=== PATIENT | female | born 1995 | race Caucasian/White ===

== ENCOUNTER 2019-08-13 07:48 | Outpatient (CLI) | payer BC, SELFPAY ==
--- NOTE | 2019-08-13 08:23 | NM_ITS ---
WS: [id number] Nuclear medicine hepatobiliary scan with ejection fraction, 08/13/2019 Clinical Data: EPIG PAIN/POST PRANDIAL N/V/NORMAL US Comparison: None. Findings: After the intravenous injection of 7.6 mCi of technetium 99m mebrofenin, multiple anterior gamma camera images of the right upper quadrant were obtained. The parenchymal phase of the liver showed a normal decrease in activity over time. At 10 minutes post injection, there was activity in the gallbladder, intrahepatic ducts and common bi le duct. No evidence of extravasation, obstruction or dilatation of the intrahepatic ducts is seen. Ejection fraction: After the oral administration of 8 ounces of Ensure Plus, the ejection fracture was measured between 1 minute and 65 minutes. It measured 60% which is normal NM/NM hepatobiliary w phar* [id number] Impression: Normal hepatobiliary scan. Impression: Normal ejection fraction of 60%
== END 2019-08-13 07:49 | disposition home or self-care (01) ==
LOC: RAD 08:02
PROVIDERS: Family Provider Internal Medicine; PCP Internal Medicine; Visit Provider Surgery
DX: R10.13 Epigastric pain (principal); R11.2 Nausea with vomiting, unspecified
CPT/HCPCS: 78227; A9537

== ENCOUNTER 2019-08-18 13:17 | Outpatient (CLI) | payer BC, SELFPAY ==
--- NOTE | 2019-08-18 | US_ITS ---
WS: [id number] Pelvic ultrasound, 08/18/2019 Clinical Data: OVARIAN CYST Comparison: None. Findings: The uterus measures 4.46 cm x 4.85 cm x 5.61 cm. The endometrium is 2.5 cm. No intrauterine or abnormal intrauterine mass is seen. The cervical length is 4.5 cm. The left ovary measures 3.2 cm x cm x cm with no cysts or masses. The right ovary measures 3.5 cm x cm x cm with no cysts or masses. US/US pelvic complete* [id number] Impression: Negative pelvic ultrasound.
== END 2019-08-18 13:18 | disposition home or self-care (01) ==
LOC: RADOUTREAD 15:48
PROVIDERS: Family Provider Internal Medicine; PCP Internal Medicine; Referring Provider Internal Medicine; Visit Provider Internal Medicine
DX: N83.209 Unspecified ovarian cyst, unspecified side (principal)

== ENCOUNTER → 2019-10-12 14:51 | Outpatient (BNVA) | payer BC, SELFPAY | PROVIDERS: Family Provider Internal Medicine; PCP Internal Medicine; Visit Provider Family Medicine | DX: F41.9 Anxiety disorder, unspecified (principal); E03.9 Hypothyroidism, unspecified; E07.9 Disorder of thyroid, unspecified | CPT/HCPCS: 84439; 84443 ==

== ENCOUNTER 2020-04-22 19:30 | Emergency (ER) | payer BC, SELFPAY ==
[2020-04-22 20:02] VITALS: BP 117/96; PULSE 80; RESP 14; TEMP 37; O2SAT 98; BMI 25.7
== END 2020-04-23 00:52 ==
PROVIDERS: Emergency Provider Emergency Medicine; PCP Internal Medicine
DX: Z53.21 Procedure and treatment not carried out due to patient leaving prior to being seen by health care provider (principal)
CPT/HCPCS: 99281

== ENCOUNTER → 2020-06-30 12:58 | Outpatient (BNVA) | payer BC, SELFPAY | PROVIDERS: PCP Internal Medicine; Visit Provider Specialist | DX: G43.711 Chronic migraine without aura, intractable, with status migrainosus (principal) | CPT/HCPCS: 99204 ==

== ENCOUNTER → 2020-07-14 13:59 | Outpatient (BNVA) | payer BC, SELFPAY | PROVIDERS: PCP Family Medicine; Visit Provider Specialist | DX: G43.711 Chronic migraine without aura, intractable, with status migrainosus (principal) | CPT/HCPCS: 64615; J0585 ==

== ENCOUNTER 2020-07-25 08:05 | Outpatient (CLI) | payer BC, SELFPAY ==
--- NOTE | 2020-07-25 08:00 | MR_ITS ---
WS: [id number] MRI HEAD WITHOUT CONTRAST TECHNIQUE: Sagittal T1, T2 axial, T2 axial FLAIR, axial and coronal T1 images, axial susceptibility w eighted imaging, axial diffusion weighted images, and coronal T2 images were obtained. CLINICAL INFORMATION: G43.711 - Chronic migraine without aura, intractable, with status migrainosus COMPARISON: MRI 1 017 FINDINGS: No evidence of restricted diffusion to suggest acute ischemia. Ventricular system and basal cisterns are patent. No suspicious intracranial signal abnormalities. Normal palencia-white differentiation. Stabl e cerebellar tonsillar tibia. No hydrocephalus. Normal vascular flow voids at the skull base. No extr a-axial fluid collections. Paranasal sinuses and mastoid air cells well aerated. No hemosiderin on th e susceptibility weighted images. Temporal lobes and hippocampal formations are normal in appearance. Normal optic chiasm and pituitary infundibulum. Normal cavernous sinuses and Meckel's cave. MR/MR head wo con* [id number] IMPRESSION: 1. No evidence of restricted diffusion to suggest acute ischemia. 2. No suspicious intracranial signal abnormalities. Normal palencia-white differen tiation. 3. No hydrocephalus. 4. Incidental cerebellar tonsillar ectopia. No hydrocephalus. Normal fourth ve ntricle. 5. Temporal lobes and hippocampal formations are normal in appearance. Normal optic chiasm and pituitary infundibulum. 6. No significant interval changes.
--- NOTE | 2020-07-25 08:00 | MR_ITS ---
WS: [id number] MRA HEAD TECHNIQUE: Axial 3-D TOF images obtained with axial images and axial, sagittal, and coronal 2-D refor matted images. CLINICAL INFORMATION: G43.711 - Chronic migraine without aura, intractable, with status migrainosus COMPARISON: None. FINDINGS: Distal vertebral arteries are patent. Basilar artery is patent. Normal vascularity to the HIGHER EDUCATION ADMINISTRATOR territo ry bilaterally. Both ICAs are patent the skull base. Normal vascularity to the ARTUR and MCA territories bilaterally. N ormal anterior communicating artery. No evidence of high-grade proximal stenosis or aneurysm. MR/MR angio head wo con [id number] IMPRESSION: Normal intracranial MRA.
== END 2020-07-25 08:06 | disposition home or self-care (01) ==
LOC: RADSHAW 08:07
PROVIDERS: PCP Family Medicine; Visit Provider Specialist
DX: G43.711 Chronic migraine without aura, intractable, with status migrainosus (principal)
CPT/HCPCS: 70544; 70551

== ENCOUNTER 2020-11-02 08:38 | Emergency (ER) | payer BC, SELFPAY ==
[2020-11-02] VITALS (8 sets, daily range): BP systolic 103–135; BP diastolic 58–77; PULSE 82–124; RESP 16–18; TEMP 36.8–37.2; O2SAT 96–100; BMI 26.7
--- NOTE | 2020-11-02 08:45 | ED_ITS ---
HPI - Headache General: Chief Complaint: Headache Stated Complaint: VOMITING BLOOD, MIGRAINE Time Seen by Provider: 11/02/20 08:43 Source: patient Mode of arrival: ambulatory Limitations: no limitations History of Present Illness: HPI Narrative: Patient is a nice 25-year-old female who presents to ED today with a complaint of nausea, vomiting, and migraine headache. Patient tells me yesterday she began feeling extremely nauseous. She tells me she vomited approximately 20 times throughout the day. Patient states after several episodes of vomiting she began noticing small amounts of bright red blood within her vomit. She is complaining of upper abdominal pain. She has no history of gastritis or gastric or duodenal ulcers. Patient states after the nausea and vomiting began she feels like that triggered a migraine headache. Patient has a longstanding history of migraine headaches. She sees Dr. Berrios for this. Patient reports trying Botox for her migraines and states this did help the frequency. Patient states her headache today feels like a migraine. She has not been running fevers. She reports normal bowel movements. Denies urinary symptoms. No bad food exposures. No sick contacts. MD elicited complaint: headache and other (N/V) Onset (ago): hour(s) Onset description: gradually Severity: severe Pain scale (0-10): 10 Exacerbating factors: light Associated symptoms: Reports nausea and vomiting; Deny chest pain, confusion, fever(s), lightheadedness, malaise, rash or syncope Review of Systems Const: Denies: fever(s), chills, body aches, fatigue or malaise Eyes: Denies: change in vision or blurry vision ENMT: Denies: throat pain or odynophagia Card: Denies: chest pain, palpitations, irregular heart rhythm, lightheadedness, syncope or dyspnea on exertion Resp: Denies: dyspnea, productive cough or pain on inspiration GI: Reports: abdominal pain, nausea, vomiting and hematemesis; Denies: coffee ground emesis, heartburn, diarrhea, constipation, change in stool character or melena : Denies: flank pain, difficulty voiding, dysuria, urinary frequency, urinary urgency or urinary hesitancy Musc: Denies: neck pain, back pain or joint pain Skin/Breast: Denies: rash Neuro: Reports: headache(s); Denies: numbness in extremities, weakness in extremities, sensory changes, dizziness, vertigo or confusion PFSH ED PFSH: Medical History (Updated 11/02/20 @ 11:45 by BOLA Barton) Migraine headache with aura Thyroid disorder Surgical History History of D&C (05/23/17) D&C with suction. Dx: Blighted Ovum. [place] [facility] [place]. History of laparoscopic cholecystectomy (08/2019) Performed by Dr. Dwyer at [facility]. History of plastic surgery (~2001) age 7 on lip Family History Other No pertinent family history Social History Smoking and tobacco status: never smoked Alcohol intake: never Other details last substance use: Denies drug use. Physical Exam Const: COMMON NORMALS: no acute distress, average body habitus, patient oriented x3, no limitations, healthy appearing, alert and well nourished GENERAL APPEARANCE: cooperative ORIENTATION/CONSCIOUSNESS: Yes awake, Yes oriented to person, Yes oriented to place and Yes oriented to time HENMT: COMMON NORMALS: normocephalic and atraumatic HEAD & SCALP: normocephalic and atraumatic Eye: COMMON NORMALS: Equal, round and reactive pupils present and EOMs intact bilaterally GENERAL EYE: appearance normal, both eyes and all related structures PUPIL: Yes Equal, round and reactive pupils present Neck/C-Spine: COMMON NORMALS: full ROM, no lymphadenopathy, supple and no meningeal signs Chest: COMMONS NORMALS: normal inspection of the chest Resp: COMMON NORMALS: normal respiratory effort and clear to auscultation bilaterally AUSCULTATION: clear to auscultation bilaterally Cardio: COMMON NORMALS: regular rate and regular rhythm RATE: regular rate RHYTHM: regular rhythm GI: COMMON NORMALS: Normal to inspection, nondistended, normoactive bowel sounds present, Soft to palpation, No hepatosplenomegaly present and no masses PALPATION: Yes Soft to palpation, Yes Tenderness to palpation present (GI) (throughout upper abdomen ) and Yes No hepatosplenomegaly present : COMMON NORMALS: Yes no CVA tenderness BLADDER/KIDNEY EXAM: Yes no CVA tenderness Back/Pelvis: COMMON NORMALS: no CVA tenderness Neuro: MORRIS COMA SCALE: document GCS findings Morris coma scale eye opening: Spontaneous Morris coma scale verbal response: Orientated [place] coma scale motor response: Obey commands Morris coma scale total score: 15 COMMON NORMALS: patient oriented x3 SENSORIUM/ORIENTATION: Yes alert, Yes oriented to person, Yes oriented to place and Yes oriented to time MENINGEAL SIGNS: Yes no meningeal signs Skin: COMMON NORMALS: no rashes or lesions noted GENERAL SKIN EXAM: no rashes or lesions noted Course Vital Signs: Vital signs: Vital Signs Temperature 98.2 F 11/02/20 08:40 Pulse Rate 82 11/02/20 11:00 Respiratory Rate 18 11/02/20 11:00 Blood Pressure 105/58 11/02/20 11:00 Pulse Oximetry 99 11/02/20 11:00 MDM - Headache MDM Narrative: Medical decision making narrative: Patient has not had any episodes of vomiting while here. Vital signs are stable. Her H&H is normal. Patient's headache, abdominal pain, and nausea are much improved after IV medications and fluids. Patient's abdomen is nonsurgical. CT imaging was thought to be unnecessary at this time. Recommend bland diet over the next 24 to 48 hours and advancing as tolerated. She will be sent home with nausea medications. Return to ED precautions given. She can continue to follow-up with Dr. Berrios regarding her migraines. Lab Data: Labs: Lab Results 11/02/20 11/02/20 11/02/20 Range/Units 09:20 09:20 09:20 WBC 9.9 (4.0-10.0) 10^3/ uL RBC 5.37 H (4.1-5.3) 10^6/u L Hgb 15.9 H (11.5-15.3) g/dL Hct 45.7 (37.0-47.0) % MCV 85.1 (81-99) fL MCH 29.6 (28.0-34.0) pg MCHC 34.8 (30.0-36.0) g/dL RDW 11.9 L (12.1-15.1) % Plt Count 184 (130-400) 10^3/c mm MPV 11.1 H (7.4-10.4) fL Neut % (Auto) 92.7 % Lymph % (Auto) 3.6 % [place] % (Auto) 3.4 % Eos % (Auto) 0.0 % Baso % (Auto) 0.1 % Neut # (Auto) 9.18 H (1.8-7.7) 10^3/u L Lymph # (Auto) 0.4 L (0.8-4.8) 10^3/u L [place] # (Auto) 0.3 (0.2-0.9) 10^3/u L Eos # (Auto) 0.0 (0.0-0.8) 10^3/u L Baso # (Auto) 0.0 (0.0-0.1) 10^3/u L Nucleated RBC % (a uto) 0 % Nucleated RBCs # 0.0 /100WBC Sodium 140 (136-145) mmol/L Potassium 3.7 (3.5-5.1) mmol/L Chloride 105 (98-107) mmol/L Carbon Dioxide 25 (22-29) mmol/L Anion Gap 13.7 (5-19) BUN 15 (6-20) mg/dL Creatinine 0.6 (0.5-0.9) mg/dL GFR Calculation 121.8 (90-130) mL/min Glucose 122 H (65-115) mg/dL Calculated Osmolal ity 292 (285-295) mOsm/k g Lactic Acid (0.5-2.2) mmol/L Calcium 8.6 (8.5-10.5) mg/dL Total Bilirubin 0.7 (0.15-1.2) mg/dL AST 22 (0-32) U/L ALT 38 H (0-33) U/L Alkaline Phosphata se 57 (35-105) IU/L Total Protein 7.4 (6.6-8.7) g/dL Albumin 4.3 (3.5-5.2) g/dL Globulin 3.1 (1.3-4.6) g/dL Lipase 18 (13-60) U/L HCG, Qual Negative (Negative) Urine Color (Yellow) Urine Appearance (CLEAR) Urine pH (5-7) Ur Specific Gravit y (1.005-1.030) Urine Protein (Negative) Urine Glucose (UA) (Normal) Urine Ketones (Negative) Urine Blood (Negative) Urine Nitrate (Negative) Urine Bilirubin (Negative) Urine Urobilinogen (Negative) mg/dL Ur Leukocyte Bety ase (Negative) 11/02/20 11/02/20 Range/Units 09:20 09:56 WBC (4.0-10.0) 10^3/ uL RBC (4.1-5.3) 10^6/u L Hgb (11.5-15.3) g/dL Hct (37.0-47.0) % MCV (81-99) fL MCH (28.0-34.0) pg MCHC (30.0-36.0) g/dL RDW (12.1-15.1) % Plt Count (130-400) 10^3/c mm MPV (7.4-10.4) fL Neut % (Auto) % Lymph % (Auto) % [place] % (Auto) % Eos % (Auto) % Baso % (Auto) % Neut # (Auto) (1.8-7.7) 10^3/u L Lymph # (Auto) (0.8-4.8) 10^3/u L [place] # (Auto) (0.2-0.9) 10^3/u L Eos # (Auto) (0.0-0.8) 10^3/u L Baso # (Auto) (0.0-0.1) 10^3/u L Nucleated RBC % (a uto) % Nucleated RBCs # /100WBC Sodium (136-145) mmol/L Potassium (3.5-5.1) mmol/L Chloride (98-107) mmol/L Carbon Dioxide (22-29) mmol/L Anion Gap (5-19) BUN (6-20) mg/dL Creatinine (0.5-0.9) mg/dL GFR Calculation (90-130) mL/min Glucose (65-115) mg/dL Calculated Osmolal ity (285-295) mOsm/k g Lactic Acid 1.1 (0.5-2.2) mmol/L Calcium (8.5-10.5) mg/dL Total Bilirubin (0.15-1.2) mg/dL AST (0-32) U/L ALT (0-33) U/L Alkaline Phosphata se (35-105) IU/L Total Protein (6.6-8.7) g/dL Albumin (3.5-5.2) g/dL Globulin (1.3-4.6) g/dL Lipase (13-60) U/L HCG, Qual (Negative) Urine Color Yellow (Yellow) Urine Appearance Clear (CLEAR) Urine pH 6.5 (5-7) Ur Specific Gravit y 1.015 (1.005-1.030) Urine Protein Neg (Negative) Urine Glucose (UA) Norm (Normal) Urine Ketones 1+ H (Negative) Urine Blood Neg (Negative) Urine Nitrate Negative (Negative) Urine Bilirubin 1+ H (Negative) Urine Urobilinogen 1 H (Negative) mg/dL Ur Leukocyte Bety ase Negative (Negative) Discharge Plan Discharge Patient Disposition: Home Clinical Impression: Gastroenteritis Migraine Qualifiers: Migraine type: without aura Status migrainosus presence: without status migrainosus Intractability: not intractable Qualified Code(s): G43.009 - Migraine without aura, not intractable, without status migrainosus Condition: Stable Prescriptions: New metoclopramide HCl 10 mg tablet 10 mg PO Q6H PRN (Reason: nausea and vomiting) Qty: 14 RF: 0 No Action lorazepam 1 mg tablet 1 mg PO DAILY PRN (Reason: anxiety) 30 Days Qty: 30 RF: 2 Aimovig Autoinjector 140 mg/mL auto-injector 140 mg SUBCUT ONCE Qty: 1 RF: 2 Zoloft 50 mg tablet See Rx Instructions .ROUTE .COMPLEX PRN (Reason: unknown) RF: 0 Discharge Orders: Discharge ED (Routine); Ordered 11/02/20 Ordered By: Lisy Gould Referrals: Hermelinda Walton MD [Primary Care Provider] - Patient Instructions: Migraine Headache (ED), Gastroenteritis (ED) Activity Restrictions/Additional Instructions: Please return to the emergency department for worsening or severe abdominal pain, repetitive episodes of vomiting, continued blood in your vomit, severe headache, or any other concerns you may have. Coding Level of Care Code ED Pastry Chef for Tarung Fwd Exam Comprehensive
[2020-11-02] MEDS: ondansetron 2 mg/ML SDV 2 mL 4 MG IVP (09:26)
[2020-11-02] MEDS: diphenhydrAMINE 50 mg/mL SDV 1mL IVP (09:26)
[2020-11-02] MEDS: sodium chloride 0.9% 500 ML IV (09:27)
[2020-11-02] MEDS: dexamethasone 10 mg/mL INJ 6 MG IV (09:27)
[2020-11-02 09:30] LABS: Basophils % 0.1 %; Hematocrit 45.7 % (37.0-47.0); Hemoglobin 15.9 g/dL (11.5-15.3); Lymphocytes # 0.4 10^3/uL (0.8-4.8); Lymphocytes % 3.6 %; Mean Corpuscular HGB Conc 34.8 g/dL (30.0-36.0); Mean Corpuscular Hemoglobin 29.6 pg (28.0-34.0); Mean Corpuscular Volume 85.1 fL (81-99); Mean Platelet Volume 11.1 fL (7.4-10.4); Monocytes # 0.3 10^3/uL (0.2-0.9); Monocytes % 3.4 %; Neutrophils # 9.18 10^3/uL (1.8-7.7); Neutrophils % 92.7 %; Nucleated Red Blood Cells % 0 %; Platelet Count 184 10^3/cmm (130-400); Red Blood Count 5.37 10^6/uL (4.1-5.3); Red Cell Distribution Width 11.9 % (12.1-15.1); White Blood Count 9.9 10^3/uL (4.0-10.0)
[2020-11-02] MEDS: lidocaine 2% viscous 15 ML, aluminum-mag hydrox-simethicon 30 ML, sucralfate oral liq 1 GM PO (09:31)
[2020-11-02 10:01] LABS: Add Urine Microscopic? NO
[2020-11-02] MEDS: morphine 4 mg/mL SDV 1 mL IVP (10:08)
[2020-11-02 10:16] LABS: Bilirubin Urine 1+ (Negative); Blood Urine Neg (Negative); Glucose Urine UA Norm (Normal); Ketones Urine 1+ (Negative); Leukocyte Esterase Urine Negative (Negative); Nitrate Urine Negative (Negative); Protein Urine Neg (Negative); Specific Gravity, Urine 1.015 (1.005-1.030); Urine Appearance Clear (CLEAR); Urine Color Yellow (Yellow); Urobilinogen Urine 1 mg/dL (Negative); pH Urine 6.5 (5-7)
[2020-11-02 10:16] LABS: HCG, Serum Qual Negative (Negative)
[2020-11-02 10:20] LABS: Lactic Sepsis W/Reflex 1.1 mmol/L (0.5-2.2)
[2020-11-02] MEDS: valproic acid inj 500 MG in sodium chloride 0.9% 50 ML 55 MG IV (10:21)
--- NOTE | 2020-11-02 10:21 | PC.PHAR ---
pt states she is unsure if she got her aimovig injection-pt states she only takes lorazepam and zoloft prn-pt states she not taken for a month or so-pt states she has been off of her javier for 2 1/2 months
[2020-11-02 10:23] LABS: Alanine Aminotransferase 38 U/L (0-33); Albumin Level 4.3 g/dL (3.5-5.2); Alkaline Phosphatase 57 IU/L (35-105); Anion Gap 13.7 (5-19); Aspartate Amino Transferase 22 U/L (0-32); Blood Urea Nitrogen 15 mg/dL (6-20); Calcium 8.6 mg/dL (8.5-10.5); Carbon Dioxide 25 mmol/L (22-29); Chloride 105 mmol/L (98-107); Globulin 3.1 g/dL (1.3-4.6); Glomerular Filtration Rate 121.8 mL/min (90-130); Glucose 122 mg/dL (65-115); Lipase 18 U/L (13-60); Osmolality Calculated 292 mOsm/kg (285-295); Potassium 3.7 mmol/L (3.5-5.1); Sodium 140 mmol/L (136-145); Total Bilirubin 0.7 mg/dL (0.15-1.2); Total Protein 7.4 g/dL (6.6-8.7)
[2020-11-02] MEDS: sodium chloride 0.9% 500 ML 999 ML IV ×2 (10:35→11:26)
[2020-11-02] MEDS: metoclopramide 5 mg/mL SDV 2 mL 10 MG IVP (11:26)
== END 2020-11-02 11:53 | disposition home or self-care (01) ==
PROVIDERS: Emergency Provider Physician Assistant; PCP Family Medicine
DX: K52.9 Noninfective gastroenteritis and colitis, unspecified (principal); G43.009 Migraine without aura, not intractable, without status migrainosus
CPT/HCPCS: 80053; 81003; 83605; 83690; 84703; 85025; 96365; 96375; 99283; J1100; J1200; J2270; J2405; J2765; J7040

== ENCOUNTER 2022-03-04 22:20 | Emergency (ER) | payer BC, SELFPAY ==
[2022-03-04 22:31] VITALS: BP 132/80; PULSE 76; RESP 18; TEMP 36.8; O2SAT 100; BMI 27.4
--- NOTE | 2022-03-04 23:28 | PC.NURSE ---
pt assessment pt states her 'artery has shooting pains and now its going up into her jaw. also states that its not muscle pain because she knows what a spasm feels like.'
[2022-03-04 23:29] VITALS: BP 144/82; PULSE 92; RESP 16; O2SAT 100
--- NOTE | 2022-03-04 23:30 | ED_ITS ---
HPI - Neck Pain/Injury General: Chief Complaint: Neck Pain/Injury Stated Complaint: Neck Pain Time Seen by Provider: 03/04/22 22:29 Source: patient Mode of arrival: ambulatory Limitations: no limitations History of Present Illness: Patient is a 26-year-old female who presents to ED today with a complaint of left sided neck pain. Patient tells me pain began fairly acutely without any injury or trauma yesterday morning around 10 AM. Patient states pain does not feel musculature in nature. She states pain seems to be intermittent with several exacerbations throughout the day. She cannot identify any alleviating or worsening factors to her discomfort. It does not seem to be worsened by movement or palpation. Patient is anxious stating she believes it could be an artery in her neck. She does report some slight paresthesia sensations to her left jawline. Does not complain of any neurologic deficits/facial nerve palsies. Denies pulsatile tinnitus but does feel like her ears feel full. She is not having a headache. She does have an extensive history of migraine headaches. No visual changes, dizziness, lightheadedness. No dysphagia. No recent chiropractic manipulation. MD complaint: neck pain Onset (ago): day(s) (yesterday) Radiation: left lateral Duration: intermittent Relieving factors: none Exacerbating factors: none Associated symptoms: Denies difficulty walking, dizziness or headache(s) Review of Systems Const: Denies: fever(s), chills, body aches, fatigue or malaise Eyes: Denies: change in vision, blurry vision, photophobia, eye discomfort, floaters or seeing flashes ENMT: Reports: change in hearing (reports fullness); Denies: throat pain, odynophagia, swelling of lips/tongue, dental pain, ear or mastoid pain, ear discharge, disequilibrium, nasal discharge or nasal congestion Card: Denies: chest pain, palpitations, irregular heart rhythm, lightheadedness, syncope or dyspnea on exertion Resp: Denies: dyspnea, productive cough, pain on inspiration or chest congestion Musc: Reports: neck pain; Denies: back pain, extremity pain, extremity swelling, joint pain, joint swelling, joint redness, joint warmth, joint stiffness, limited range of motion or muscle weakness Skin/Breast: Denies: rash Neuro: Denies: headache(s), numbness in extremities, weakness in extremities, sensory changes, lack of coordination, difficulty walking, frequent falls, dizziness, vertigo, confusion, behavioral changes, Slurred speech present, difficulty communicating thoughts or seizure-like activity Psych: Reports: anxiety PFSH ED PFSH: Medical History (Updated 03/05/22 @ 00:54 by BOLA Barton) Migraine headache with aura Thyroid disorder Surgical History History of D&C (05/23/17) D&C with suction. Dx: Blighted Ovum. Performed by Dr. Batista at [facility] in [place], [place]. History of laparoscopic cholecystectomy (08/2019) Performed by Dr. Dwyer at [facility]. History of plastic surgery (~2001) age 7 on lip Family History Other No pertinent family history Social History Smoking and tobacco status: never smoked Alcohol intake: never Other details last substance use: Denies drug use. Physical Exam Const: COMMON NORMALS: average body habitus, patient oriented x3, no limitations, healthy appearing, alert and well nourished GENERAL APPEARANCE: cooperative and anxious ORIENTATION/CONSCIOUSNESS: Yes awake, Yes oriented to person, Yes oriented to place and Yes oriented to time HENMT: COMMON NORMALS: normocephalic, atraumatic, hearing grossly normal b ilaterally, external ears normal, EAC's normal and TM's normal bilaterally HEAD & SCALP: normal to inspection, normocephalic and atraumatic FACE & SINUS: normal facial exam EXTERNAL EAR: Yes external ears normal EXTERNAL AUDITORY CANAL: EAC's normal TYMPANIC MEMBRANE: TM's normal bilaterally MOUTH: tongue normal TEETH & GINGIVA: Yes fair dentition THROAT: posterior oropharynx normal, tonsils normal and uvula midline Eye: COMMON NORMALS: Equal, round and reactive pupils present and EOMs intact bilaterally GENERAL EYE: appearance normal, both eyes and all related structures PUPIL: Yes Equal, round and reactive pupils present Neck/C-Spine: COMMON NORMALS: full ROM, no lymphadenopathy, supple, no meningeal signs, no JVD, Thyroid normal and No carotid bruits GENERAL: Yes normal visual inspection THYROID: Thyroid normal CERVICAL SPINE: Yes cervical ROM normal, No pain with cervical ROM, No Cervical spine tenderness and No Paracervical muscle tenderness OTHER: no pulsatile mass Resp: COMMON NORMALS: normal respiratory effort and clear to auscultation bilaterally AUSCULTATION: clear to auscultation bilaterally Cardio: COMMON NORMALS: no JVD, regular rate and regular rhythm RATE: regular rate RHYTHM: regular rhythm Neuro: MORRIS COMA SCALE: document GCS findings Morris coma scale eye opening: Spontaneous Morris coma scale verbal response: Orientated [place] coma scale motor response: Obey commands Morris coma scale total score: 15 COMMON NORMALS: patient oriented x3, CN's II-XII intact bilaterally, moves all extremities, no focal motor deficits, no sensory deficits noted and gait normal SENSORIUM/ORIENTATION: Yes alert, Yes oriented to person, Yes oriented to place and Yes oriented to time MENINGEAL SIGNS: Yes no meningeal signs CRANIAL NERVES: Yes CN normal except as noted Skin: COMMON NORMALS: no rashes or lesions noted GENERAL SKIN EXAM: no rashes or lesions noted Course Vital Signs: Vital signs: Vital Signs Temperature 98.3 F 03/04/22 22:31 Pulse Rate 92 03/04/22 23:29 Respiratory Rate 16 03/04/22 23:29 Blood Pressure 144/82 03/04/22 23:29 Pulse Oximetry 100 03/04/22 23:29 MDM - Neck Pain/Injury Medical Decision Making Labs normal. CTA of her neck is negative. Patient stable for DC with recommen dations for PCP follow up if pain persists. Return to ED precautions given. Lab Data : 03/04/22 23:50 03/04/22 23:50 Radiology Impressions Neck CTA 03/04/22 23:40 IMPRESSION: No stenosis, dissection or occlusion. REFERENCES: NASCET CRITERIA. The degree of internal carotid artery stenosis is based on NASCET criteria. Normal is no stenosis. Mild is less than 50% stenosis. Moderate is 50-69% stenosis. Severe is 70% to 99% stenosis. Total occlusion is no detectable patent lumen. Laboratory Results WBC 6.1 10^3/uL (4.0-10.0) 03/04/22 23:50 RBC 4.88 10^6/uL (4.1-5.3) 03/04/22 23:50 Hgb 14.3 g/dL (11.5-15.3) 03/04/22 23:50 Hct 42.4 % (37.0-47.0) 03/04/22 23:50 MCV 86.9 fl (81-99) 03/04/22 23:50 MCH 29.3 pg (28.0-34.0) 03/04/22 23:50 MCHC 33.7 g/dL (30.0-36.0) 03/04/22 23:50 RDW 12.1 % (12.1-15.1) 03/04/22 23:50 Plt Count 183 10^3/cmm (130-400) 03/04/22 23:50 MPV 11.3 fL (7.4-10.4) H 03/04/22 23:50 Neut % (Auto) 44.0 % 03/04/22 23:50 Lymph % (Auto) 46.7 % 03/04/22 23:50 [place] % (Auto) 7.5 % 03/04/22 23:50 Eos % (Auto) 1.1 % 03/04/22 23:50 Baso % (Auto) 0.5 % 03/04/22 23:50 Neut # (Auto) 2.68 10^3/uL (1.8-7.7) 03/04/22 23:50 Lymph # (Auto) 2.9 10^3/uL (0.8-4.8) 03/04/22 23:50 [place] # (Auto) 0.5 10^3/uL (0.2-0.9) 03/04/22 23:50 Eos # (Auto) 0.1 10^3/uL (0.0-0.8) 03/04/22 23:50 Baso # (Auto) 0.0 10^3/uL (0.0-0.1) 03/04/22 23:50 Nucleated RBC % (auto) 0 % 03/04/22 23:50 Nucleated RBCs # 0.0 /100WBC 03/04/22 23:50 Sodium 141 mmol/L (136-145) 03/04/22 23:50 Potassium 3.7 mmol/L (3.5-5.1) 03/04/22 23:50 Chloride 106 mmol/L (98-107) 03/04/22 23:50 Carbon Dioxide 26 mmol/L (22-29) 03/04/22 23:50 Anion Gap 12.7 (5-19) 03/04/22 23:50 BUN 10 mg/dL (6-20) 03/04/22 23:50 Creatinine 0.7 mg/dL (0.5-0.9) 03/04/22 23:50 GFR Calculation 101.1 mL/min (90-130) 03/04/22 23:50 Glucose 102 mg/dL (65-115) 03/04/22 23:50 Calculated Osmolality 291 mOsm/kg (285-295) 03/04/22 23:50 Calcium 8.8 mg/dL (8.5-10.5) 03/04/22 23:50 HCG, Qual Negative (Negative) 03/04/22 23:50 Discharge Plan Discharge Patient Disposition: Home Clinical Impression: Neck pain on left side Condition: Stable Prescriptions: No Action sertraline [Zoloft] 50 mg tablet 50 mg PO DAILY Qty: 30 1RF lorazepam 1 mg tablet 1 mg PO DAILY PRN (Reason: anxiety) Qty: 20 1RF ketorolac 10 mg tablet 10 mg PO TID PRN (Reason: pain) 5 Days Qty: 15 1RF Discharge Orders: Discharge ED (Routine); Ordered 03/05/22 Ordered By: Lisy Gould Referrals: Hermelinda Walton MD [Primary Care Provider] - Coding Level of Care Code ED Screen Making Supervisor for Chg Fwd Exam Comprehensive
--- NOTE | 2022-03-04 23:40 | CTR_ITS ---
PROCEDURE INFORMATION: Exam: CTA Neck With Contrast Exam date and time: 03/04/2022 11:59 PM Age: 26 years old Clinical indication: Other: Left side neck sharp shooting pains; Patient HX: Sharp shooting pains in left side of neck x 3 days; Additional info: L neck pain TECHNIQUE: Imaging protocol: Computed tomographic angiography of the neck with contrast. 3D rendering (Not supervised by radiologist): MIP and/or 3D reconstructed images were created by the technologist. Radiation optimization: All CT scans at this facility use at least one of these dose optimization techniques: automated exposure control; mA and/or kV adjustment per patient size (includes targeted exams where dose is matched to clinical indication); or iterative reconstruction. Contrast material: OMNIPAQUE 350; Contrast volume: 95 ml; Contrast route: INTRAVENOUS (IV); COMPARISON: [facility] Soft Tissue Neck 02/27/2019 2:42 PM RADIATION DOSE METRICS: Total DLP (mGy-cm): 300.1 FINDINGS: Right common carotid artery: No stenosis. No dissection or occlusion. Right internal carotid artery: No stenosis of the extracranial segment. No dissection or occlusion. Right external carotid artery: No occlusion or stenosis of the origin. Left common carotid artery: No stenosis. No dissection or occlusion. Left internal carotid artery: No stenosis of the extracranial segment. No dissection or occlusion. Left external carotid artery: No occlusion or stenosis of the origin. Right vertebral artery: No stenosis. No dissection or occlusion. Left vertebral artery: No stenosis. No dissection or occlusion. Soft tissues: Normal. No significant soft tissue swelling. Bones/joints: No acute fracture. CT/CT angio neck [id number] IMPRESSION: No stenosis, dissection or occlusion. REFERENCES: NASCET CRITERIA. The degree of internal carotid artery stenosis is based on NASCET criteria. Normal is no stenosis. Mild is less than 50% stenosis. Moderate is 50-69% stenosis. Severe is 70% to 99% stenosis. Total occlusion is no detectable patent lumen.
[2022-03-04 23:55] LABS: Basophils % 0.5 %; Eosinophils # 0.1 10^3/uL (0.0-0.8); Eosinophils % 1.1 %; Hematocrit 42.4 % (37.0-47.0); Hemoglobin 14.3 g/dL (11.5-15.3); Lymphocytes # 2.9 10^3/uL (0.8-4.8); Lymphocytes % 46.7 %; Mean Corpuscular HGB Conc 33.7 g/dL (30.0-36.0); Mean Corpuscular Hemoglobin 29.3 pg (28.0-34.0); Mean Corpuscular Volume 86.9 fl (81-99); Mean Platelet Volume 11.3 fL (7.4-10.4); Monocytes # 0.5 10^3/uL (0.2-0.9); Monocytes % 7.5 %; Neutrophils # 2.68 10^3/uL (1.8-7.7); Nucleated Red Blood Cells % 0 %; Platelet Count 183 10^3/cmm (130-400); Red Blood Count 4.88 10^6/uL (4.1-5.3); Red Cell Distribution Width 12.1 % (12.1-15.1); White Blood Count 6.1 10^3/uL (4.0-10.0)
[2022-03-05 00:10] LABS: HCG, Serum Qual Negative (Negative)
[2022-03-05] MEDS: iohexol 350 mg/mL 100 mL Btl IV (00:11)
[2022-03-05 00:20] LABS: Anion Gap 12.7 (5-19); Blood Urea Nitrogen 10 mg/dL (6-20); Calcium 8.8 mg/dL (8.5-10.5); Carbon Dioxide 26 mmol/L (22-29); Chloride 106 mmol/L (98-107); Glomerular Filtration Rate 101.1 mL/min (90-130); Glucose 102 mg/dL (65-115); Osmolality Calculated 291 mOsm/kg (285-295); Potassium 3.7 mmol/L (3.5-5.1); Sodium 141 mmol/L (136-145)
== END 2022-03-05 01:04 | disposition home or self-care (01) ==
PROVIDERS: Emergency Provider Physician Assistant; PCP Family Medicine
DX: M54.2 Cervicalgia (principal)
CPT/HCPCS: 70498; 80048; 84703; 85025; 99284; Q9967

== ENCOUNTER → 2022-03-15 11:52 | Outpatient (BNVA) | payer BC, SELFPAY | PROVIDERS: PCP Family Medicine; Visit Provider Nurse Practitioner Women's Health | DX: Z01.419 Encounter for gynecological examination (general) (routine) without abnormal findings (principal); N93.9 Abnormal uterine and vaginal bleeding, unspecified | CPT/HCPCS: 84146; 84439; 84443; 84702; 88175 ==

== ENCOUNTER → 2022-03-19 07:49 | Outpatient (BNVA) | payer BC, SELFPAY | PROVIDERS: PCP Family Medicine; Visit Provider Nurse Practitioner Women's Health | DX: N93.9 Abnormal uterine and vaginal bleeding, unspecified (principal); N85.4 Malposition of uterus | CPT/HCPCS: 76830 ==

== ENCOUNTER → 2022-06-19 14:23 | Outpatient (BNVA) | payer BC, SELFPAY | PROVIDERS: PCP Family Medicine; Visit Provider Family Medicine | DX: R00.0 Tachycardia, unspecified (principal); R07.9 Chest pain, unspecified; N93.9 Abnormal uterine and vaginal bleeding, unspecified; F41.9 Anxiety disorder, unspecified; G43.109 Migraine with aura, not intractable, without status migrainosus; E03.9 Hypothyroidism, unspecified; Z51.81 Encounter for therapeutic drug level monitoring | CPT/HCPCS: 84439; 84484; 85025; 85379; 86141 ==

== ENCOUNTER → 2022-10-08 15:12 | Outpatient (BNVA) | payer BC, SELFPAY | PROVIDERS: PCP Family Medicine; Visit Provider Family Medicine | DX: R07.9 Chest pain, unspecified (principal); R00.0 Tachycardia, unspecified | CPT/HCPCS: 80053; 83735; 84439; 84443; 84481; 85025 ==

== ENCOUNTER → 2023-01-18 10:22 | Outpatient (BNVA) | payer OTHER, SELFPAY | PROVIDERS: PCP Family Medicine; Visit Provider Obstetrics & Gynecology | DX: Z34.90 Encounter for supervision of normal pregnancy, unspecified, unspecified trimester (principal) | CPT/HCPCS: 81000; 81025; 84702 ==

== ENCOUNTER 2023-01-20 14:55 | Emergency (ER) | payer OTHER, SELFPAY ==
[2023-01-20 14:58] VITALS: BP 138/79; PULSE 98; RESP 14; TEMP 36.7; O2SAT 99; BMI 28.5
--- NOTE | 2023-01-20 15:20 | PC.PHAR ---
pt states not taken amitriptyline 10mg daily (filled12/07/22 30d/s)or effexor er 37.5mg daily (filled 12/03/22 90d/s) since jan 02 2023
[2023-01-20 15:31] LABS: HCG Qualitative Urine. Positive (Negative)
[2023-01-20 15:34] LABS: Add Urine Microscopic? NO; Charge for UA Resulting for Rev
--- NOTE | 2023-01-20 15:35 | USR_ITS ---
PROCEDURE INFORMATION: Exam: US First Trimester, Transabdominal and US , Transvaginal Exam date and time: 01/20/2023 3:50 PM Age: 27 years old Clinical indication: complicated by abdominal or pelvic pain; Lower; First trimester (<14 weeks 0 days); Gestational age or lmp: 7w4d; ; Additional info: Abd pain, 7 wks preg LABS AND CLINICAL REPORTS: Last menstrual period start date: 11/28/2022 Gestational age (Established): 7 w 4 d Estimated due date (Established): 09/04/2023 TECHNIQUE: Imaging protocol: Real-time transabdominal obstetrical ultrasound of the maternal pelvis and a first trimester , less than 14 weeks 0 days, with image documentation. Transvaginal imaging was used for better evaluation of the fetus, adnexa, and/or cervix. COMPARISON: US OB limited [id number] 03/27/2018 4:19 PM FINDINGS: Gestation: Intrauterine gestation. Yolk sac is unremarkable. Embryonic/ heart rate: 141 bpm Extra-embryonic membranes/Placenta: Unremarkable. No subchorionic bleed. Amniotic fluid: Amniotic fluid and extra-amniotic fluid is normal for gestational age. BIOMETRY: Gestational age (AUA): 6 w 0 d using crown-rump length as the standard. Mean sac diameter: 2.4 cm. EGA (MSD) is 7 w 5 d [place]-Rump length (CRL): 3.5 mm. EGA (CRL) is 6 w 0 d MATERNAL: Uterus: Unremarkable. Cervix: Unremarkable. Right ovary/adnexa: Unremarkable ovary. Left ovary/adnexa: Unremarkable ovary. Intraperitoneal space: No intraperitoneal free fluid. US/US OB <=14 wk fetus w transvag IMPRESSION: Single intrauterine gestation with heart rate noted.
--- NOTE | 2023-01-20 15:35 | ED_ITS ---
Documented by User: Rupa Goodman PA-C 01/20/23 16:36 HPI - Abdominal Pain General: Chief Complaint: Abdominal Pain Stated Complaint: abd pain and lower back Time Seen by Provider: 01/20/23 15:27 Source: patient Mode of arrival: ambulatory Limitations: no limitations History of Present Illness: 27-year-old G3, P2 female presents to the ER today for worsening lower abdominal pain. Patient reports she is approximately 7 weeks . Patient was seen by her OPERATIONS CONTROLLER on Saturday for spotting and abdominal pain. A bedside ultrasound was performed but he was unable to visualize anything in the uterus at that time. hCG was positive at 59,000. Patient was instructed to come to the ER for any worsening pain. Patient reports this morning when she got up she had worsening lower abdominal pain that radiates into her back. Patient reports this pain has been going on 3 weeks but did start to worsen this morning. She denies any fever or chills. Denies any diarrhea or constipation. Patient reports she has had no spotting this morning. Patient is unsure of her blood type. Patient reports this pain is not really as sharp pain but more of a cramping type of pain. It is intermittent and not constant. Patient does have a history of a blighted ovum but otherwise unremarkable pregnancies. Review of Systems General: Reports: 10 or more systems reviewed and unremarkable except in HPI and below PFSH ED PFSH: Medical History Migraine headache with aura No pertinent past medical history neghx: htn,dm,thyroid, dvt/pe PCP: Dr. Pérez Surgical History History of D&C (05/23/17) D&C with suction. Dx: Blighted Ovum. Performed by Dr. Batista at [facility] [place], [place]. History of laparoscopic cholecystectomy (08/2019) Performed by Dr. Dwyer at [facility]. History of plastic surgery (~2001) age 7 on lip Family History Grandmother Hypertension Maternal Denies family history of Colon cancer Ovarian cancer Diabetes Heart disease Hypercholesteremia Breast cancer Uterine cancer Thyroid disease Stroke Social History Substance/Drug Use: never Other details last substance use: Denies drug use. Physical Exam Const: COMMON NORMALS: no acute distress, average body habitus, patient oriented x3, no limitations, healthy appearing, alert and well nourished Resp: COMMON NORMALS: normal respiratory effort EFFORT & INSPECTION: Yes able to speak in complete sentences Cardio: COMMON NORMALS: regular rate, regular rhythm and No murmurs present (Cardio) RATE: regular rate RHYTHM: regular rhythm GI: COMMON NORMALS: Normal to inspection, nondistended, normoactive bowel sounds present, Soft to palpation and non-tender PALPATION: Yes Soft to palpation Back/Pelvis: COMMON NORMALS: no thoracic nor lumbar tenderness and thoraco- lumbar ROM normal Extremity: COMMON NORMALS: normal to inspection and full ROM Neuro: COMMON NORMALS: patient oriented x3 SENSORIUM/ORIENTATION: Yes alert Psych: COMMON NORMALS: mental status grossly normal, Normal thought process present and cooperative THOUGHT PROCESS: Normal thought process present Skin: COMMON NORMALS: no rashes or lesions noted and no wounds GENERAL SKIN EXAM: no rashes or lesions noted Course ED course: Patient presents for lower abdominal pain at approximately 7 weeks . Patient has had some spotting the last several days but today the spotting resolved. She was seen by PCP/OPERATIONS CONTROLLER on Saturday and an hCG was done at that time. It was approximately 59,000. A bedside ultrasound was performed however nothing was visualized in the uterus at that time. Unsure of whether they could visualize fallopian tubes to make sure there was no ectopic. Based on note from BARREL HEADER, he had a low suspicion for ectopic based on 3-week history of abdominal pain. Patient was instructed to come to the ER for worsening pain which she reports began this morning. We will get ultrasound with transvaginal in addition to lab work at this time. Patient unsure of blood type. Consultations: Consultation #1: Spoke with Dr. Conley and gave him results. He agreed with treatment plan and will see pt in the office this week. Time: 16:32 Vital Signs: Vital signs: Vital Signs Temperature 98.1 F 01/20/23 14:58 Pulse Rate 98 01/20/23 14:58 Respiratory Rate 14 01/20/23 14:58 Blood Pressure 138/79 01/20/23 14:58 Pulse Oximetry 99 01/20/23 14:58 Oxygen Delivery Me thod Room Air 01/20/23 14:58 MDM - Abdominal Pain Medical Decision Making Ultrasound obtained given worsening abdominal pain. heart rate of 141 noted. Measuring 6 weeks 0 days crown-rump length and sac approximately 7 weeks 5 days. Based on LMP patient is 7 and 4 today. I spoke with Dr. Conley who recommends follow-up with him this week. Patient is not having any more bleeding and urine is normal. Blood type is B+ so RhoGAM not necessary. We will obtain a beta hCG however a positive heart rate was noted. Also noted on ultrasound were normal ovaries with no free fluid. Discussed findings with patient. Recommended pelvic rest and avoiding heavy lifting. Push fluids. Follow-up with Dr. Conley this week. Return to the ER with new or worsening symptoms. Patient verbalized understanding and was in agreement with treatment plan. Lab Data Labs/Radiology: Radiology Impressions Obstetrics Ultrasound 01/20/23 15:35 IMPRESSION: Single intrauterine gestation with heart rate noted. Laboratory Results HCG, Qual Positive (Negative) H 01/20/23 15:20 Ser , Semi-Qnt 07459.00 mIU/mL 01/20/23 15:30 Urine Color Straw (Yellow) 01/20/23 15:20 Urine Appearance Clear (CLEAR) 01/20/23 15:20 Urine pH 5 (5-7) 01/20/23 15:20 Ur Specific [place] 1.020 (1.005-1.030) 01/20/23 15:20 Urine Protein Neg (Negative) 01/20/23 15:20 Urine Glucose (UA) Norm (Normal) 01/20/23 15:20 Urine Ketones Negative (Negative) 01/20/23 15:20 Urine Blood Neg (Negative) 01/20/23 15:20 Urine Nitrate Negative (Negative) 01/20/23 15:20 Urine Bilirubin Neg (Negative) 01/20/23 15:20 Urine Urobilinogen Norm mg/dL (Negative) 01/20/23 15:20 Ur Leukocyte Esterase Negative (Negative) 01/20/23 15:20 Blood Type B Positive 01/20/23 15:30 Rho(D) Type Positive 01/20/23 15:30 Critical Care Time Critical Care Time: Critical Care Time: No Discharge Plan Discharge Patient Disposition: Home Clinical Impression: related condition in first trimester Condition: Stable Prescriptions: No Action prenat.vits,era,uad-rmhl-immxd Tablet 1 tab PO QAM ondansetron HCl 4 mg tablet 4 mg PO Q8H PRN (Reason: nausea and vomiting) Qty: 30 2RF Discharge Orders: Discharge ED (Routine); Ordered 01/20/23 Ordered By: Rupa Goodman Referrals: Marie Smith MD [Primary Care Provider] - Discharge Diet: Usual diet Discharge Activity: Increase activity as tolerated Patient Instructions: Opioid Safety, Pain Management Activity Restrictions/Additional Instructions: Push fluids. Recommend pelvic rest and avoid heavy lifting. Continue home medications. Follow-up with Dr. Conley this week. Turn to the ER with new or worsening symptoms. Coding Level of Care Code ED Irrigator Gravity Flow for Chg Fwd Documented by User: Oswaldo Hameed DO 01/21/23 05:42 HPI - Abdominal Pain General: Chief Complaint: Abdominal Pain Stated Complaint: abd pain and lower back Time Seen by Provider: 01/20/23 15:27 PFSH ED PFSH: Medical History Migraine headache with aura No pertinent past medical history neghx: htn,dm,thyroid, dvt/pe PCP: Dr. Pérez Surgical History History of D&C (05/23/17) D&C with suction. Dx: Blighted Ovum. Performed by Dr. Batista at [facility] [place], [place]. History of laparoscopic cholecystectomy (08/2019) Performed by Dr. Dwyer at [facility]. History of plastic surgery (~2001) age 7 on lip Family History Grandmother Hypertension Maternal Denies family history of Colon cancer Ovarian cancer Diabetes Heart disease Hypercholesteremia Breast cancer Uterine cancer Thyroid disease Stroke Social History Substance/Drug Use: never Other details last substance use: Denies drug use. Course Vital Signs: Vital signs: Vital Signs Temperature 98.1 F 01/20/23 14:58 Pulse Rate 98 01/20/23 14:58 Respiratory Rate 14 01/20/23 14:58 Blood Pressure 138/79 01/20/23 14:58 Pulse Oximetry 99 01/20/23 14:58 Oxygen Delivery Me thod Room Air 01/20/23 14:58 MDM - Abdominal Pain Medical Decision Making Ultrasound obtained given worsening abdominal pain. heart rate of 141 noted. Measuring 6 weeks 0 days crown-rump length and sac approximately 7 weeks 5 days. Based on LMP patient is 7 and 4 today. I spoke with Dr. Conley who recommends follow-up with him this week. Patient is not having any more bleeding and urine is normal. Blood type is B+ so RhoGAM not necessary. We will obtain a beta hCG however a positive heart rate was noted. Also noted on ultrasound were normal ovaries with no free fluid. Discussed findings with patient. Recommended pelvic rest and avoiding heavy lifting. Push fluids. Follow-up with Dr. Conley this week. Return to the ER with new or worsening symptoms. Patient verbalized understanding and was in agreement with treatment plan. Chart reviewed. Agree with assessment and plan. Lab Data Labs/Radiology: Radiology Impressions Obstetrics Ultrasound 01/20/23 15:35 IMPRESSION: Single intrauterine gestation with heart rate noted. Laboratory Results HCG, Qual Positive (Negative) H 01/20/23 15:20 Ser , Semi-Qnt 24461.00 mIU/mL 01/20/23 15:30 Urine Color Straw (Yellow) 01/20/23 15:20 Urine Appearance Clear (CLEAR) 01/20/23 15:20 Urine pH 5 (5-7) 01/20/23 15:20 Ur Specific [place] 1.020 (1.005-1.030) 01/20/23 15:20 Urine Protein Neg (Negative) 01/20/23 15:20 Urine Glucose (UA) Norm (Normal) 01/20/23 15:20 Urine Ketones Negative (Negative) 01/20/23 15:20 Urine Blood Neg (Negative) 01/20/23 15:20 Urine Nitrate Negative (Negative) 01/20/23 15:20 Urine Bilirubin Neg (Negative) 01/20/23 15:20 Urine Urobilinogen Norm mg/dL (Negative) 01/20/23 15:20 Ur Leukocyte Esterase Negative (Negative) 01/20/23 15:20 Blood Type B Positive 01/20/23 15:30 Rho(D) Type Positive 01/20/23 15:30 Discharge Plan Discharge Patient Disposition: Home Clinical Impression: related condition in first trimester Condition: Stable Prescriptions: No Action prenat.vits,era,kwl-alrz-qnjuu Tablet 1 tab PO QAM ondansetron HCl 4 mg tablet 4 mg PO Q8H PRN (Reason: nausea and vomiting) Qty: 30 2RF Discharge Orders: Discharge ED (Routine); Ordered 01/20/23 Ordered By: Rupa Goodman Referrals: Marie Smith MD [Primary Care Provider] - Discharge Diet: Usual diet Discharge Activity: Increase activity as tolerated Patient Instructions: Opioid Safety, Pain Management Activity Restrictions/Additional Instructions: Push fluids. Recommend pelvic rest and avoid heavy lifting. Continue home medications. Follow-up with Dr. Conley this week. Turn to the ER with new or worsening symptoms. Coding Level of Care Code ED Irrigator Gravity Flow for Lion Ramsey
[2023-01-20 15:44] LABS: Bilirubin Urine Neg (Negative); Blood Urine Neg (Negative); Glucose Urine UA Norm (Normal); Ketones Urine Negative (Negative); Leukocyte Esterase Urine Negative (Negative); Nitrate Urine Negative (Negative); Protein Urine Neg (Negative); Urine Appearance Clear (CLEAR); Urine Color Straw (Yellow); Urobilinogen Urine Norm (Negative); pH Urine 5 (5-7)
== END 2023-01-20 16:42 | disposition home or self-care (01) ==
PROVIDERS: Emergency Medicine; Emergency Provider Physician Assistant; PCP Family Medicine
DX: O26.891 Other specified pregnancy related conditions, first trimester (principal); R10.30 Lower abdominal pain, unspecified; Z3A.01 Less than 8 weeks gestation of pregnancy
CPT/HCPCS: 36415; 76801; 76817; 81003; 81025; 84702; 86900; 99284

== ENCOUNTER → 2023-01-22 13:35 | Outpatient (BNVA) | payer OTHER, SELFPAY | PROVIDERS: PCP Family Medicine; Visit Provider Obstetrics & Gynecology | DX: Z34.80 Encounter for supervision of other normal pregnancy, unspecified trimester (principal) | CPT/HCPCS: 81000 ==

== ENCOUNTER 2023-03-10 12:36 | Emergency (ER) | payer OTHER, SELFPAY ==
[2023-03-10 12:46] VITALS: BP 106/61; PULSE 120; RESP 16; TEMP 37; O2SAT 96; BMI 29.7
--- NOTE | 2023-03-10 14:50 | ED_ITS ---
Documented by User: Rupa Goodman PA-C 03/10/23 16:50 HPI - Headache General: Chief Complaint: Headache Stated Complaint: covid symptoms Time Seen by Provider: 03/10/23 14:44 Source: patient Mode of arrival: ambulatory Limitations: no limitations History of Present Illness: 27-year-old female who is 14 weeks presents to the ER today for a migraine headache that began yesterday, nausea and vomiting, and mild cough. Patient reports the cough began prior to the rest of the symptoms. Denies any fevers associated. Patient reports when she began throwing up the cough improved. She reports she is thrown up more than normal in the last 24 hours. She is always got some nausea with but this has been significantly worse. Patient denies any diarrhea. Denies any abdominal pain. Patient does have a history of migraines and reports this is up near the top of her worst. She reports she has had some in the whole time. Patient has not taken anything at home for her symptoms. She was exposed to someone on a youth trip with COVID. Patient talked to her PCP who recommended she come here for testing. Review of Systems General: Reports: 10 or more systems reviewed and unremarkable except in HPI and below PFSH ED PFSH: Medical History Migraine headache with aura No pertinent past medical history neghx: htn,dm,thyroid, dvt/pe PCP: Dr. Pérez Surgical History History of D&C (05/23/17) D&C with suction. Dx: Blighted Ovum. Performed by Dr. Batista at [facility] in [place], [place]. History of laparoscopic cholecystectomy (08/2019) Performed by Dr. Dwyer at [facility]. History of plastic surgery (~2001) age 7 on lip Family History Grandmother Hypertension Maternal Denies family history of Colon cancer Ovarian cancer Diabetes Heart disease Hypercholesteremia Breast cancer Uterine cancer Thyroid disease Stroke Social History Substance/Drug Use: never Other details last substance use: Denies drug use. Physical Exam Const: COMMON NORMALS: average body habitus, patient oriented x3, no limitati ons, healthy appearing, alert and well nourished; apparent distress (uncomfortable, lights are bothering pt) HENMT: COMMON NORMALS: normocephalic, atraumatic, external ears normal, Normal external nose present and moist oral mucous membranes HEAD & SCALP: normocephalic and atraumatic NOSE: Normal external nose present EXTERNAL EAR: Yes external ears normal Eye: COMMON NORMALS: Equal, round and reactive pupils present PUPIL: Yes Equal, round and reactive pupils present Neck/C-Spine: COMMON NORMALS: full ROM Resp: COMMON NORMALS: normal respiratory effort EFFORT & INSPECTION: Yes able to speak in complete sentences Cardio: COMMON NORMALS: regular rhythm RATE: tachycardic RHYTHM: regular rhythm GI: COMMON NORMALS: Normal to inspection, nondistended, normoactive bowel sounds present OTHER: gravid Extremity: COMMON NORMALS: normal to inspection, full ROM and no pedal edema Neuro: COMMON NORMALS: patient oriented x3 SENSORIUM/ORIENTATION: Yes alert Psych: COMMON NORMALS: mental status grossly normal, Normal thought process present and cooperative THOUGHT PROCESS: Normal thought process present Skin: COMMON NORMALS: no rashes or lesions noted GENERAL SKIN EXAM: no rashes or lesions noted Course ED course: Patient presents to the ER with headache, nausea and vomiting for the last 24 hours. Patient was exposed to someone in the last several days that tested positive for COVID. Patient talked her PCP who recommended she come here. Nani belle does have a history of migraines however this is near the top as far as being one of the worst she has had. She has had nausea with as she is currently 14 weeks however this is also worse than normal and she is vomiting more than normal. We will go ahead and do some IV fluids, Benadryl, and Reglan at this time. We will try to make patient more comfortable and see if we can help with her headache. Patient to be COVID tested also. Reevaluation(s): Reevaluation #1: Reports headache still present but nausea is better. Patient requesting to go home. I explained that I am waiting on a urine because if she has UTI we need to get that treated. Patient does seem a little bit irritated at this time. Time: 16:45 Vital Signs: Vital signs: Vital Signs Temperature 98.6 F 03/10/23 12:46 Pulse Rate 98 03/10/23 16:01 Respiratory Rate 18 03/10/23 16:01 Blood Pressure 106/61 03/10/23 12:46 Pulse Oximetry 99 03/10/23 16:01 Oxygen Delivery Me thod Room Air 03/10/23 16:01 MDM - Headache Medical Decision Making COVID-negative. Patient reports migraine still present but nausea has improved some. Urine negative for any infection. We will refill the Reglan which patient can use for nausea at home. Recommend a bland diet. Continue taking rbbl-wlr-zzfmkot medications such as Tylenol and Benadryl for headache. If no improvement in 1 to 2 days follow-up with PCP or SOFTWARE INSTALLER. Return to the ER with any new or worsening symptoms. Patient verbalized understanding and was in agreement with the treatment plan. Lab Data Laboratory Results Urine Color Yellow (Yellow) 03/10/23 15:59 Urine Appearance Hazy (CLEAR) A 03/10/23 15:59 Urine pH 7 (5-7) 03/10/23 15:59 Ur Specific [place] 1.010 (1.005-1.030) 03/10/23 15:59 Urine Protein Neg (Negative) 03/10/23 15:59 Urine Glucose (UA) Norm (Normal) 03/10/23 15:59 Urine Ketones 1+ (Negative) H 03/10/23 15:59 Urine Blood Neg (Negative) 03/10/23 15:59 Urine Nitrate Negative (Negative) 03/10/23 15:59 Urine Bilirubin Neg (Negative) 03/10/23 15:59 Urine Urobilinogen Norm mg/dL (Negative) 03/10/23 15:59 Ur Leukocyte Esterase Negative (Negative) 03/10/23 15:59 Urine RBC None /hpf (0-2) 03/10/23 15:59 Urine WBC 0-4 /hpf (0-5) H 03/10/23 15:59 Ur Squamous Epith Cells 5-10 /hpf (0-5) H 03/10/23 15:59 Amorphous Sediment 2+ /hpf 03/10/23 15:59 Urine Bacteria 1+ /hpf (NONE) H 03/10/23 15:59 SARS-CoV-2 Ag (Rapid) negative (Negative) 03/10/23 14:30 Critical Care Time Critical Care Time: Critical Care Time: No Discharge Plan Discharge Patient Disposition: Home Clinical Impression: Vomiting affecting Migraine Qualifiers: Migraine type: unspecified Status migrainosus presence: without status migrainosus Intractability: intractable Qualified Code(s): G43.919 - Migraine, unspecified, intractable, without status migrainosus Condition: Stable Prescriptions: New Reglan 10 mg tablet 10 mg PO Q6H 7 Days Qty: 28 0RF No Action prenat.vits,era,rno-tiiu-llhny Tablet 1 tab PO QAM metoclopramide HCl [Reglan] 10 mg tablet 10 mg PO Q8H PRN (Reason: nausea and vomiting) Qty: 40 1RF Discharge Orders: Discharge ED (Routine); Ordered 03/10/23 Ordered By: Rupa Goodman Referrals: Marie Smith MD [Primary Care Provider] - Discharge Diet: Usual diet Discharge Activity: Resume usual activity Patient Instructions: Opioid Safety, Pain Management Activity Restrictions/Additional Instructions: Take reglan as needed for nausea. Recommend Tylenol for headache in addition to Benadryl. BRAT diet recommended. F/U with PCP or OBGYN in 1-2 days if symptoms not improving. Return to the ER with any new or worsening symptoms. Coding Level of Care Code ED Configuration Engineer for Chg Fwd Documented by User: Oswaldo Hameed DO 03/11/23 06:44 HPI - Headache General: Chief Complaint: Headache Stated Complaint: covid symptoms Time Seen by Provider: 03/10/23 14:44 PFSH ED PFSH: Medical History Migraine headache with aura No pertinent past medical history neghx: htn,dm,thyroid, dvt/pe PCP: Dr. Pérez Surgical History History of D&C (05/23/17) D&C with suction. Dx: Blighted Ovum. Performed by Dr. Batista at [facility] in [place], [place]. History of laparoscopic cholecystectomy (08/2019) Performed by Dr. Dwyer at [facility]. History of plastic surgery (~2001) age 7 on lip Family History Grandmother Hypertension Maternal Denies family history of Colon cancer Ovarian cancer Diabetes Heart disease Hypercholesteremia Breast cancer Uterine cancer Thyroid disease Stroke Social History Substance/Drug Use: never Other details last substance use: Denies drug use. Course Vital Signs: Vital signs: Vital Signs Temperature 98.6 F 03/10/23 12:46 Pulse Rate 98 03/10/23 16:01 Respiratory Rate 18 03/10/23 16:01 Blood Pressure 106/61 03/10/23 12:46 Pulse Oximetry 99 03/10/23 16:01 Oxygen Delivery Me thod Room Air 03/10/23 16:01 MDM - Headache Medical Decision Making COVID-negative. Patient reports migraine still present but nausea has improved some. Urine negative for any infection. We will refill the Reglan which patient can use for nausea at home. Recommend a bland diet. Continue taking tgyz-xpc-kkekxhg medications such as Tylenol and Benadryl for headache. If no improvement in 1 to 2 days follow-up with PCP or SOFTWARE INSTALLER. Return to the ER with any new or worsening symptoms. Patient verbalized understanding and was in agreement with the treatment plan. Chart reviewed and patient discussed with midlevel. Agree with assessment and plan. Lab Data Laboratory Results Urine Color Yellow (Yellow) 03/10/23 15:59 Urine Appearance Hazy (CLEAR) A 03/10/23 15:59 Urine pH 7 (5-7) 03/10/23 15:59 Ur Specific [place] 1.010 (1.005-1.030) 03/10/23 15:59 Urine Protein Neg (Negative) 03/10/23 15:59 Urine Glucose (UA) Norm (Normal) 03/10/23 15:59 Urine Ketones 1+ (Negative) H 03/10/23 15:59 Urine Blood Neg (Negative) 03/10/23 15:59 Urine Nitrate Negative (Negative) 03/10/23 15:59 Urine Bilirubin Neg (Negative) 03/10/23 15:59 Urine Urobilinogen Norm mg/dL (Negative) 03/10/23 15:59 Ur Leukocyte Esterase Negative (Negative) 03/10/23 15:59 Urine RBC None /hpf (0-2) 03/10/23 15:59 Urine WBC 0-4 /hpf (0-5) H 03/10/23 15:59 Ur Squamous Epith Cells 5-10 /hpf (0-5) H 03/10/23 15:59 Amorphous Sediment 2+ /hpf 03/10/23 15:59 Urine Bacteria 1+ /hpf (NONE) H 03/10/23 15:59 SARS-CoV-2 Ag (Rapid) negative (Negative) 03/10/23 14:30 Discharge Plan Discharge Patient Disposition: Home Clinical Impression: Vomiting affecting Migraine Qualifiers: Migraine type: unspecified Status migrainosus presence: without status migrainosus Intractability: intractable Qualified Code(s): G43.919 - Migraine, unspecified, intractable, without status migrainosus Condition: Stable Prescriptions: New Reglan 10 mg tablet 10 mg PO Q6H 7 Days Qty: 28 0RF No Action prenat.vits,era,ywr-ygvn-ofdhp Tablet 1 tab PO QAM metoclopramide HCl [Reglan] 10 mg tablet 10 mg PO Q8H PRN (Reason: nausea and vomiting) Qty: 40 1RF Discharge Orders: Discharge ED (Routine); Ordered 03/10/23 Ordered By: Rupa Goodman Referrals: Marie Smith MD [Primary Care Provider] - Discharge Diet: Usual diet Discharge Activity: Resume usual activity Patient Instructions: Opioid Safety, Pain Management Activity Restrictions/Additional Instructions: Take reglan as needed for nausea. Recommend Tylenol for headache in addition to Benadryl. BRAT diet recommended. F/U with PCP or OBGYN in 1-2 days if symptoms not improving. Return to the ER with any new or worsening symptoms. Coding Level of Care Code ED Configuration Engineer for Lion Ramsey
[2023-03-10 14:53] LABS: SARS Covid-2 Antigen negative (Negative)
[2023-03-10] MEDS: sodium chloride 0.9% 500 ML 999 ML IV (15:27)
[2023-03-10] MEDS: diphenhydrAMINE 50 mg/mL SDV 1mL 12.5 MG IVP (15:29)
[2023-03-10] MEDS: metoclopramide 5 mg/mL SDV 2 mL IVP (15:29)
[2023-03-10 16:01] VITALS: PULSE 98; RESP 18; O2SAT 99
[2023-03-10 16:46] LABS: Add Urine Microscopic? YES; Bacteria Urine 1+ /hpf; Bilirubin Urine Neg (Negative); Blood Urine Neg (Negative); Glucose Urine UA Norm (Normal); Ketones Urine 1+ (Negative); Leukocyte Esterase Urine Negative (Negative); Nitrate Urine Negative (Negative); Protein Urine Neg (Negative); Urine Appearance Hazy (CLEAR); Urine Color Yellow (Yellow); Urobilinogen Urine Norm (Negative); WBC Urine 0-4 /hpf (0-5); pH Urine 7 (5-7)
[2023-03-10 16:47] LABS: Add Urine Culture? No; Amorphous Sediment Urine 2+ /hpf
== END 2023-03-10 17:00 | disposition home or self-care (01) ==
PROVIDERS: Emergency Provider Physician Assistant; PCP Family Medicine
DX: O26.892 Other specified pregnancy related conditions, second trimester (principal); G43.919 Migraine, unspecified, intractable, without status migrainosus; O21.9 Vomiting of pregnancy, unspecified; Z3A.14 14 weeks gestation of pregnancy; Z20.822 Contact with and (suspected) exposure to COVID-19
CPT/HCPCS: 81001; 87426; 96361; 96374; 96375; 99284; J1200; J2765; J7040

== ENCOUNTER → 2023-04-18 10:01 | Outpatient (BNVA) | payer BC, SELFPAY | PROVIDERS: PCP Family Medicine; Visit Provider Family Medicine | DX: R21 Rash and other nonspecific skin eruption (principal) | CPT/HCPCS: 80053; 82542 ==

== ENCOUNTER 2023-06-20 15:40 | Outpatient (CLI) | payer BC, SELFPAY ==
[2023-06-20 15:55] VITALS: BMI 32.9
[2023-06-20 15:57] VITALS: BP 125/72; PULSE 88
[2023-06-20 16:17] VITALS: BP 114/67; PULSE 94
[2023-06-20 16:37] VITALS: BP 108/62; PULSE 95
[2023-06-20 16:57] VITALS: BP 108/61; PULSE 101
[2023-06-20 16:59] LABS: Bilirubin Urine Neg (Negative); Blood Urine Neg (Negative); Glucose Urine UA Norm (Normal); Ketones Urine Negative (Negative); Leukocyte Esterase Urine Negative (Negative); Nitrate Urine Negative (Negative); Protein Urine Neg (Negative); Urine Appearance Clear (CLEAR); Urine Color Yellow (Yellow); Urobilinogen Urine Norm (Negative); pH Urine 7 (5-7)
[2023-06-20 17:07] LABS: Amorphous Sediment Urine TRACE /hpf; Fine Granular Casts Urine RARE /lpf; Mucus Urine 1+ /hpf; RBC Urine RARE /hpf (0-2); Squamous Epithelial Cell Urine 0-4 /hpf (0-5); WBC Urine RARE /hpf (0-5)
[2023-06-20 17:08] LABS: Add Urine Culture? No
[2023-06-20 17:30] VITALS: BP 108/61; PULSE 101; RESP 18
== END 2023-06-20 17:20 | disposition home or self-care (01) ==
LOC: OPOB 15:50 → OBGYN 15:51
PROVIDERS: Absent Provider Family Medicine; Family Provider Family Medicine; PCP Family Medicine; Visit Provider Family Medicine
DX: O26.893 Other specified pregnancy related conditions, third trimester (principal); Z3A.29 29 weeks gestation of pregnancy
CPT/HCPCS: 59025; 81001; 99211

== ENCOUNTER → 2024-06-10 08:43 | Outpatient (BNVA) | payer BC, SELFPAY | PROVIDERS: Family Provider Family Medicine; PCP Family Medicine; Visit Provider Family Medicine | DX: Z00.00 Encounter for general adult medical examination without abnormal findings (principal); R53.83 Other fatigue | CPT/HCPCS: 80053; 82306; 82607; 84443; 85025 ==

== ENCOUNTER → 2024-07-28 15:36 | Outpatient (BNVA) | payer BC, SELFPAY | PROVIDERS: Family Provider Family Medicine; PCP Family Medicine; Visit Provider Family Medicine | DX: R74.8 Abnormal levels of other serum enzymes (principal) | CPT/HCPCS: 80053 ==

== ENCOUNTER 2024-08-26 14:57 | Outpatient (CLI) | payer BC, SELFPAY ==
--- NOTE | 2024-08-26 15:06 | CT_ITS ---
WS: [id number] CT NECK TECHNIQUE: Contrast-enhanced CT of the neck with coronal and sagittal reformatted images. CLINICAL INFORMATION: OTALGIA, BILATERAL COMPARISON: None. DLP: 128.[address] scans at [facility] use at least one of these dose optimization techniques: automated e xposure control; mA and/or kV adjustment per patient size (includes targeted exams where dose is matc hed to clinical indication); or iterative reconstruction. FINDINGS: Paranasal sinuses are well aerated. Mastoid air cells are well aerated. Normal posterior nasopharynx. Submandibular glands are normal. Parotid glands are normal. No evidence of supraglottic or glottic m ass. Normal subglottic airway. A few tiny thyroid nodules largest on the RIGHT measuring 5 mm. Lung a pices are well aerated. No cervical lymphadenopathy. Normal posterior nasopharynx. Normal parapharyngeal fat. No other acute findings. CT/CT neck w con* [id number] IMPRESSION: 1. Normal salivary glands. 2. No cervical lymphadenopathy. 3. No evidence of supraglottic or glottic mass. Normal subglottic airway. 4. A few tiny thyroid nodules largest on the RIGHT measuring 5 mm. 5. No other acute findings.
[2024-08-26] MEDS: iohexol 350 mg/mL 500 mL Btl (per mL) IV (15:42)
== END 2024-08-26 14:58 | disposition home or self-care (01) ==
PROVIDERS: Family Provider Family Medicine; PCP Family Medicine; Visit Provider Specialist
DX: H92.03 Otalgia, bilateral (principal); H65.23 Chronic serous otitis media, bilateral
CPT/HCPCS: 70491

== ENCOUNTER → 2025-02-25 16:12 | Outpatient (BNVA) | payer BC, SELFPAY | PROVIDERS: Family Provider Family Medicine; PCP Family Medicine; Visit Provider Family Medicine | DX: R10.9 Unspecified abdominal pain (principal) | CPT/HCPCS: 81000 ==

== ENCOUNTER 2025-04-09 02:22 | Emergency (ER) | payer BC, SELFPAY ==
--- OUTSIDE RECORDS SUMMARY | 2025-04-09 02:26 | XMS_ITS | Patient Health Record ---
Author Organization [facility] Address [address] [place] [address] Care Team Providers Care Business Insurance Agent Name Role Phone Marie Smith Primary Care Provider Unavailab Rosanne Aguirre Unavailable [phone] Allergies No Known Allergies Results Component Value Reference Range Notes Leukorrhea - [id number], [id number], 8 7660, [id number], [id number] Reviewed date:10/27/2024 07:12:22 AM Interpretation: Performing Lab: Notes/Report: Chlamydia Sent to Ref Lab,resu lt in clinical notes Gonorrhea Sent to Ref Lab,resu lt in clinical notes Trichomonas Sent to Ref Lab Pap w/High Risk HPV [id number], 8 [id number] Reviewed date:10/27/2024 07:12:22 AM Interpretation: Performing Lab: Notes/Report: Reason For Referral No Information Medications Medication SIG (Take, Route, Fr equency, Duration) Notes Start Date End Date Status PNV Not-Taking Immunizations Vaccine Route Administration Date Status Comme nts zzTDAP IM Intramuscular 07/24/2023 Administered Social History Tobacco Use: Social History Observation Description Date Details (start date - stop date) Never Smoker NA - NA Social History Tobacco Use: Social Info Question Answer Notes xTobacco Use/Smoking Are you a nonsmoker Additional Details Category Social Info Options Details Drugs/Alcohol: Do you smoke marijuana? De nies Do you drink alcohol? No Section Notes: Negative x3, lives with husb and and boys, safe, denies h/o abuse, SAHM currently Negative x3, lives with husb and and boys, safe, denies h/o abuse, SAHM currently Negative x3, lives with husb and and boys, safe, denies h/o abuse, SAHM currently Negative x3, lives with husb and and boys, safe, denies h/o abuse, SAHM currently Negative x3, lives with husb and and kids, safe, denies h/o abuse, SAHM Negative x3, lives with husb and and kids, safe, denies h/o abuse, SAHM currently Negative x3, lives with husb and and boys, safe, denies h/o abuse, SAHM currently Negative x3, lives with husb and and boys, safe, denies h/o abuse, SAHM currently Vital Signs Heart Rate 74 /min 10/26/2024 Respiratory Rate 18 /min 10/26/2024 Height-cm 162.56 cm 10/26/2024 Blood pressure diastolic 80 mm Hg 10/26/2024 Oximetry 97 % 10/26/2024 Weight-kg 72.85 kg 10/26/2024 Height 64 in 10/26/2024 Blood pressure systolic 122 mm Hg 10/26/2024 Weight 160.6 lbs 10/26/2024 BMI 27.56 kg/m2 10/26/2024 Encounters Encounter Location Date Provider Diagnosis [address] [place] [id number] 10/26/2024 Rosanne Sandoval Well woman exam with routine gynecological exam Z01.419 Assessments Encounter Date Diagnosis (ICD Code) Assessment Notes Treatment Notes Treatment Clinical Notes Section Notes 10/26/2024 Well woman exam with routine gynecological exam (ICD-10 - Z01.419) exam wnl, mood good, PAP today, condoms/vasectom y for BCM RTC 3 years for pap, sooner if indicated or needed Well Visit, Ages 18 to 65: Care Instructions material was published Plan Of Treatment Next Appt Details Provider Name:Rosanne gaspar, 10/23/2027 02:30:00 PM, [address] [place] [address] [address], [place], [address], Insurance Providers Payer Name Payer Address Payer Phone Subscriber Number Group Number Insured Name Patient Relationship to Insured Coverage Start Date Coverage End Date [facility] Commercial [address] [place] [phone] [phone] [id number] JOSH BLAS Self - patient is the insured Medical (General) History Surgical History Surgery Date(Month/Year) lip surgery as a child D&C 2019 choleystectomy
--- OUTSIDE RECORDS SUMMARY | 2025-04-09 02:26 | XMS_ITS | Clinical Summary ---
Author Organization [facility] Address [address] [facility] Attn: Epic Prelude ADT VINICIUS SHOEMAKER [address] Care Team Providers Care Cook Roast Name Role Phone Unavailable Primary Care Provider Unavailabl e Allergies No known active allergies Medications vit-iron fumarate-fa (ISAMAR ) 28 mg iron- 800 mcg Tablet Take 1 Tablet by mouth daily. 03/28/2018 Active Active Problems Problem Noted Date Diagnosed Date labor in third trimester 03/28/2018 Labor and delivery indication for care or interv ention 03/28/2018 Mother's group B Streptococcus colonization stat us unknown Social History Tobacco Use Types Packs/Day Years Used Date Smoking Tobacco: Never Smokeless Tobacco: Never Alcohol Use Standard Drinks/Week Comments No 0 (1 standard drink = 0.6 oz pur e alcohol) Comments Unknown Sex and Gender Information Value Date Recorded Sex Assigned at Not on file Legal Sex Female 3:41 AM IT WEB DEVELOPMENT CONSULTANT Gender Identity Not on file Sexual Orientation Not on file Last Filed Vital Signs Vital Sign Reading Time Taken Comments Blood Pressure 111/67 03/30/2018 12:05 PM CDT Pulse 80 03/30/2018 12:05 PM CDT Temperature 36.6 C (97.8 F) 03/30/2018 12:05 PM CDT Respiratory Rate 17 03/30/2018 12:05 PM CDT Oxygen Saturation - - Inhaled Oxygen Concentration - - Weight 79.5 kg (175 lb 3.2 oz) 03/28/2018 8:35 A M CDT Height 162.6 cm (5' 4 ) 03/28/2018 8:35 AM CDT Body Mass Index 30.07 03/28/2018 8:35 AM CDT Plan of Treatment Health Maintenance Due Date Last Done Comments DTAP/TDAP/TD VACCINES (1 - Tdap) 2014 HEPATITIS B VACCINES (1 of 3 - 19+ 3-dose series) 03/13 HPV/Cotest (21-29) 2016 HPV VACCINES (1 - 3-dose SCDM series) 2022 INFLUENZA VACCINE (#1) 2025 CERVICAL CANCER SCREENING 2025 HPV/Cotest (30-65) 2025 PAP SMEAR 2025 11/01/2017 Procedures Procedure Name Priority Date/Time Associated Diagnosis Comments CERV/VAG CYTOPATH, THIN PREP Routine 11/01/2017 from Last 3 Months or Most Recently Relevant to Health Maintenance Results * CERV/VAG CYTOPATH, THIN PREP (11/01/2017) ABSTRACTED PAP INTERP wnl [facility] Genital SWAB OF ENDOCERVIX / Unknown 11/01/2017 Narrative [facility] - 11/01/2017 This external order was created through the Results Console. us Historical Provider PATHOLOGY/CYTOLOGY ORDERABLE S Final Result [facility] CLIA# [id number] [place] [address] [facility] CLIA# [id number] [address] [place] [address] from Last 3 Months or Most Recently Relevant to Health Maintenance
--- OUTSIDE RECORDS SUMMARY | 2025-04-09 02:26 | XMS_ITS | Clinical Summary ---
Author Organization [facility] Address [address] [place] [address] Phone Care Team Providers Care Assistant Therapy Aide Name Role Phone Unavailable Primary Care Provider Unavailabl e Allergies No known active allergies Medications vit-iron fumarate-fa (ISAMAR ) 28 mg iron- 800 mcg Tablet Take 1 Tablet by mouth daily. Active Active Problems Problem Noted Date Diagnosed Date Labor and delivery indication for care or interv ention 03/28/2018 labor in third trimester 03/28/2018 Mother's group B Streptococcus colonization stat us unknown Social History Tobacco Use Types Packs/Day Years Used Date Smoking Tobacco: Never Smokeless Tobacco: Never Alcohol Use Standard Drinks/Week Comments No 0 (1 standard drink = 0.6 oz pur e alcohol) Comments No Sex and Gender Information Value Date Recorded Sex Assigned at Not on file Legal Sex Female 11:47 PM CDT Gender Identity Not on file Sexual Orientation Not on file Last Filed Vital Signs Vital Sign Reading Time Taken Comments Blood Pressure 111/67 03/30/2018 12:05 PM CDT Pulse 80 03/30/2018 12:05 PM CDT Temperature 36.6 C (97.8 F) 03/30/2018 12:05 PM CDT Respiratory Rate 17 03/30/2018 12:05 PM CDT Oxygen Saturation 98% 03/30/2018 12:05 PM CDT Inhaled Oxygen Concentration - - Weight 79.5 [...] THIN PREP (11/01/2017) ABSTRACTED PAP INTERP wnl [facility] Genital SWAB OF ENDOCERVIX / Unknown us Historical Provider PATHOLOGY/CYTOLOGY ORDERABLE S Final Result [facility] CLIA# [id number] [address] [place] [address] from Last 3 Months or Most Recently Relevant to Health Maintenance Insurance [facility] Advance Directives For more information, please contact: [phone] * Full Code (Latest Code Status on File) Date Activated Date Inactivated Comments 03/28/2018 1:19 AM 03/30/2018 2:59 PM
[2025-04-09 02:45] VITALS: BP 128/100; PULSE 104; RESP 16; TEMP 36.9; O2SAT 99; BMI 27.4
[2025-04-09] MEDS: diphenhydrAMINE 50 mg/mL SDV 1mL 25 MG IVP (03:59)
[2025-04-09 04:02] VITALS: BP 125/84; PULSE 84; RESP 16; O2SAT 100
--- NOTE | 2025-04-09 04:18 | PC.NURSE ---
This nurse recieved report from Katy PADILLA @ [phone].
--- NOTE | 2025-04-09 04:35 | W.ED.HA ---
HPI - Headache General: Chief Complaint: Headache Stated Complaint: migraine Time Seen by Provider: 04/09/25 02:33 History of Present Illness: 30 yo F with Hx of recurrent migraines presents with headache starting around 7 PM last night. Reports photophobia and nausea. Tried Tylenol, 800 mg Ibuprofen, and Riya without relief. Has prior ER visits where a ?migraine cocktail? helped (Compazine, Toradol, possibly a steroid). Notes prior anxious/jittery feeling likely with Compazine, prefers to avoid or have it administered slowly in IV fluids rather than a push. Denies . States prior brain imaging has been clear. No other acute complaints were raised. Related Data Home Medications ?Medication ?Instructions ?Recorded ?Confirmed No Known Home Medications 02/25/25 02/25/25 Allergies Allergy/AdvReac Type Severity Reaction Status Date / Time No Known Allergies Allergy Verified 02/25/25 15:57 [facility] ED PFSH: Medical History (Updated 04/09/25 @ 04:12 by Jorge García MD) No pertinent past medical history neghx: htn,dm,thyroid, dvt/pe PCP: Dr. Pérez Migraine headache with aura Surgical History History of plastic surgery (~2001) age 7 on lip History of D&C (05/23/17) D&C with suction. Dx: Blighted Ovum. Per[place] Dr. Batista [place] [facility] [place], [place]. History of laparoscopic cholecystectomy (08/2019) Performed by Dr. Dwyer at [facility]. Family History Grandmother Hypertension Maternal Denies family history of Colon cancer Ovarian cancer Diabetes Heart disease Hypercholesteremia Breast cancer Uterine cancer Thyroid disease Stroke Social History Smoking and tobacco/nicotine status: never used tobacco/nicotine Substance/Drug Use: never Physical Exam Const: COMMON NORMALS: no acute distress, patient oriented x3 and alert HENMT: COMMON NORMALS: normocephalic and atraumatic HEAD & SCALP: normocephalic and atraumatic Eye: COMMON NORMALS: Equal, round and reactive pupils present, EOMs intact bilaterally and no scleral icterus PUPIL: Yes Equal, round and reactive pupils present Resp: COMMON NORMALS: normal respiratory effort and No retractions Cardio: COMMON NORMALS: regular rate, regular rhythm and No murmurs present (Cardio) RATE: regular rate RHYTHM: regular rhythm GI: COMMON NORMALS: Normal to inspection, nondistended, normoactive bowel sounds present, Soft to palpation and non-tender PALPATION: Yes Soft to palpation Neuro: COMMON NORMALS: patient oriented x3 SENSORIUM/ORIENTATION: Yes alert Skin: COMMON NORMALS: no rashes or lesions noted GENERAL SKIN EXAM: no rashes or lesions noted Course Vital Signs: Vital signs: Vital Signs Temperature 98.4 F 04/09/25 02:45 Pulse Rate 84 04/09/25 04:02 Respiratory Rate 16 04/09/25 04:02 Blood Pressure 125/84 04/09/25 04:02 Pulse Oximetry 100 04/09/25 04:02 Oxygen Delivery Me thod Room Air 04/09/25 04:02 MDM - Headache Medical Decision Making 30 yo F with recurrent migraines presents with typical migraine beginning ~1900 yesterday, with photophobia and nausea, unrelieved by OTC meds. Prior ?migraine cocktail? effective; patient reports jittery/anxious reaction likely to Compazine and prefers slow infusion or avoidance. Denies ; prior brain imaging reportedly normal. Plan discussed: place IV, administer IV fluids, and give medication for migraine. Provider favors Compazine due to efficacy but will avoid IV push and consider slow infusion to reduce adverse effects; alternative is to avoid Compazine if needed. No labs or imaging were ordered or discussed. Patient received Compazine, Benadryl, Toradol, Decadron and 1 L of normal saline and headache is much improved. She did not have dystonic reaction. She will be discharged in stable and improved condition with follow-up to primary care as needed No radiology studies performed this visit Discharge Plan Discharge Patient Disposition: Home Clinical Impression: Headache Condition: Stable Prescriptions: No Action No Known Home Medications Discharge Orders: Discharge ED (Routine); Ordered 04/09/25 Ordered By: Jorge García Referrals: Marie Smith MD [Primary Care Provider, [facility]] Discharge Diet: Usual diet Discharge Activity: Increase activity as tolerated Patient Instructions: Acute Headache (ED), Patient Portal & Jong Instructions Print Language: Italian Coding Level of Care Code ED Manager Pmo for Chg Roxy
[2025-04-09 04:58] VITALS: BP 117/78; PULSE 78; O2SAT 98
== END 2025-04-09 04:58 | disposition home or self-care (01) ==
PROVIDERS: Emergency Provider Student in an Organized Health Care Education/Training Program; PCP Family Medicine
DX: R51.9 Headache, unspecified (principal)
CPT/HCPCS: 96374; 96375; 99284; J0780; J1100; J1200; J1885; J7030

== ENCOUNTER → 2025-07-21 08:54 | Outpatient (BNVA) | payer BC, SELFPAY | PROVIDERS: PCP Family Medicine; Visit Provider Family Medicine | DX: Z00.00 Encounter for general adult medical examination without abnormal findings (principal); R79.89 Other specified abnormal findings of blood chemistry; E55.9 Vitamin D deficiency, unspecified | CPT/HCPCS: 80053; 82306; 84439; 84443; 85025 ==

== ENCOUNTER 2025-07-30 07:02 | Outpatient (CLI) | payer BC, SELFPAY ==
--- NOTE | 2025-07-30 07:00 | USR_ITS ---
PROCEDURE INFORMATION: Exam: US Abdomen; Limited Exam date and time: 07/30/2025 7:13 AM Age: 30 years old Clinical indication: Abnormal findings; Abnormal lab test; Other: Elevated lft TECHNIQUE: Imaging protocol: Real time ultrasound of the abdomen with image documentation. Limited exam focused on the region of clinical interest. COMPARISON: US OB <= 14 weeks fetus [id number] 01/20/2023 3:50 PM FINDINGS: Liver: Liver measures 11.3 cm in length. There is increased echotexture. There is antegrade portal flow. Gallbladder: The gallbladder has been surgically removed. Biliary ducts: Bile duct measures up to 10 mm. Pancreas: The pancreas is grossly normal. Right kidney: Right kidney measures 10 cm in length. There is normal cortical thickness and echotexture. US/US liver [id number] IMPRESSION: 1. Common bile duct is outside normal range, can not be entirely explained based on previous cholecystectomy or patient age. Correlate with labs. Consider MRCP if clinically indicated. 2. Findings suggest mild hepatic steatosis. No intrahepatic biliary dilatation is identified.
== END 2025-07-30 07:03 | disposition home or self-care (01) ==
LOC: RAD 07:02
PROVIDERS: PCP Family Medicine; Visit Provider Family Medicine
DX: R74.8 Abnormal levels of other serum enzymes (principal); K76.0 Fatty (change of) liver, not elsewhere classified; R93.2 Abnormal findings on diagnostic imaging of liver and biliary tract
CPT/HCPCS: 76705

== ENCOUNTER 2025-08-04 10:04 | Outpatient (CLI) | payer BC, SELFPAY ==
--- NOTE | 2025-08-04 10:15 | MRR_ITS ---
PROCEDURE INFORMATION: Exam: MR Abdomen Without Contrast, Biliary System Exam date and time: 08/04/2025 10:13 AM Age: 30 years old Clinical indication: Abnormal findings; Abnormal lab test; Elevated liver enzymes; Prior surgery; Surgery date: 6+ months; Surgery type: Gb bladder removed in 2019; Additional info: Dilated common bile duct elevated liver enzymes abd pain TECHNIQUE: Imaging protocol: MR of the abdomen without contrast. Exam focused on the biliary system and pancreatic ducts. Routine 3D-MRCP images were acquired and processed without radiologist supervision. COMPARISON: CT abdomen pelvis w con* [id number] 08/03/2019 1:29 PM FINDINGS: Liver: No mass. Gallbladder and biliary ducts: The gallbladder has been resected. There is mild prominence of the common bile duct showing a maximum diameter of 9 mm. I see no intrahepatic bile duct dilatation. No evidence of stricture or stone. Pancreas: Unremarkable. No ductal dilation. Intraperitoneal space: No fluid collection. MR/MR MRCP [id number] IMPRESSION: Mild prominence of the common bile duct which is felt to be normal for this patient after cholecystectomy
== END 2025-08-04 10:05 | disposition home or self-care (01) ==
LOC: RAD 10:04
PROVIDERS: PCP Family Medicine; Visit Provider Family Medicine
DX: R74.8 Abnormal levels of other serum enzymes (principal); K83.8 Other specified diseases of biliary tract
CPT/HCPCS: 74181